=== PATIENT | female | born 1965 | race Caucasian/White ===

== ENCOUNTER 2020-04-01 11:41 | Emergency (ER) | payer BC, SELFPAY ==
[2020-04-01 11:51] VITALS: BP 145/84; PULSE 99; RESP 18; TEMP 36.3; O2SAT 100
--- NOTE | 2020-04-01 11:58 | ED.EAR ---
HPI - Ear Problem General Chief complaint: Ear Stated complaint: ear pain Source: patient and RN notes reviewed Mode of arrival: ambulatory History of Present Illness HPI Narrative: This is a 55-year-old white female presented to urgent care today with complaints of left ear pain. According to patient in the past she has had left ear pain in her ENT specialist has had to flush her ears due to cerumen impaction. Also notes a shooting headache to her left side of her head. The patient denies SOB, CP, palpitation, extremity numbness, lightheadedness, dizziness, constipation, diarrhea, chills, or fever,Visual disturbance, ear ringing or discharge. Related Data Home Medications Medication Instructions Recorded Confirmed alprazolam 0.5 mg PO DAILY PRN 04/01/20 04/01/20 Allergies Allergy/AdvReac Type Severity Reaction Status Date / Time No Known Allergies Allergy Unknown Unknown Verified 04/01/20 11:54 Review of Systems Review of Systems: All systems reviewed & are unremarkable except as noted in HPI and below PMFSH Past Medical History Medical History Anxiety Depression Family History Family History Other Family history of malignant neoplasm Social History Social History Smoking status: Never smoker Alcohol intake: current Drinks per week: 5 Substance use: never Gender identity (if verbalized by the patient): Female Exam Narrative: Exam Narrative: GENERAL: This is a well-nourished, well-developed patient, in no apparent distress. HEAD: normocephalic, atraumatic. EYES: PERRL. Sclera clear/white. Vision is grossly intact. EARS: External ears , left auditory canals edematous with excessive cerumen , TMs normal without perforation. Hearing grossly intact. NOSE: External nose normal with no obvious nasal discharge, nares without redness, no rhinorrhea. THROAT: Mucous membranes moist, posterior pharynx clear. NECK: Neck supple, non-tender without lymphadenopathy, masses or thyromegaly. CARDIOVASCULAR: Regular rate and rhythm without murmurs, gallops, or rubs. RESPIRATORY: Clear to auscultation. Breath sounds equal bilaterally. No wheezes, rales, or rhonchi. GASTROINTESTINAL: Abdomen soft, non-tender, nondistended. Bowel sounds are active. No hepato-splenomegaly, or palpable masses. No guarding. SKIN: warm, intact with no suspicious lesions or rash, good texture and turgor. NEURO: awake, alert, and oriented to person, place and time. There were no obvious focal neurologic abnormalities. Steady gait EXTREMITIES: Normal range of motion. No edema. No calf tenderness. Negative Homans sign bilaterally. BACK: Nontender without deformity or crepitance. No flank tenderness. HENMT: Ears: hearing grossly normal bilaterally and TM's normal bilaterally Course Course Emergency Course: Patient will discharge home with amoxicillin in Cortisporin for treatment of otitis media and otitis externa Vital Signs Vital signs: Vital Signs Temperature 97.4 F L 04/01/20 11:51 Pulse Rate 99 04/01/20 11:51 Respiratory Rate 18 04/01/20 11:51 Blood Pressure 145/84 H 04/01/20 11:51 Pulse Oximetry 100 04/01/20 11:51 Temperature 97.4 F L 04/01/20 11:51 Pulse Rate 99 04/01/20 11:51 Respiratory Rate 18 04/01/20 11:51 Blood Pressure 145/84 H 04/01/20 11:51 Pulse Oximetry 100 04/01/20 11:51 Procedures Other Procedure Procedure 1: Other Procedure: bilateral ear flushing with peroxide patient not able to tolerate flushing Medical Decision Making Vital Signs Vital Signs: Vital Signs Temperature 97.4 F L 04/01/20 11:51 Pulse Rate 99 04/01/20 11:51 Respiratory Rate 18 04/01/20 11:51 Blood Pressure 145/84 H 04/01/20 11:51 Pulse Oximetry 100 04/01/20 11:51 Temperature 97.4 F L 04/01/20 11:51 Pulse R
== END 2020-04-01 12:26 | disposition home or self-care (01) ==
PROVIDERS: Emergency Provider Nurse Practitioner; PCP Family Medicine
DX: H66.92 Otitis media, unspecified, left ear (principal); H60.502 Unspecified acute noninfective otitis externa, left ear; H61.21 Impacted cerumen, right ear; F41.9 Anxiety disorder, unspecified
CPT/HCPCS: 69209; 99213; A9270; G0463

== ENCOUNTER → 2020-06-05 08:10 | Outpatient (CLI) | payer BC, SELFPAY ==
[2020-06-05 19:48] LABS: SARS-CoV-2 RNA PCR Negative
== END ==
PROVIDERS: Nurse Practitioner Family; PCP Family Medicine; Visit Provider Family Medicine
DX: Z20.822 Contact with and (suspected) exposure to COVID-19 (principal); R05 Cough
CPT/HCPCS: C9803; U0003; U0005

== ENCOUNTER 2021-12-21 12:51 | Emergency (ER) | payer BC, SELFPAY ==
--- NOTE | ~2021-12-21 | CT_ITS ---
EXAMINATION: CT brain wo con DATE: 12/21/2021 13:46 INDICATION: Altered level of consciousness TECHNIQUE: Computed tomography (CT) of the head was performed without intravenous contrast. The dose- length product was 605.33 mGy-cm. Automated exposure control and iterative reconstruction technique w ere employed. COMPARISON: None FINDINGS: No acute intracranial hemorrhage, infarction, mass or mass effect. No ventriculomegaly or m idline shift. Basilar cisterns are patent. Normal das-white differentiation. Paranasal sinuses and m astoids are pneumatized. No depressed skull fractures. There are scattered mild periventricular and s ubcortical white matter changes, most likely related to small vessel ischemic disease (microangiopath y). Mild generalized brain parenchymal volume loss. IMPRESSION: 1. No acute intracranial abnormality. 2: Chronic age-related findings. Reviewed, dictated and finalized at location A.
--- NOTE | 2021-12-21 13:29 | ED.PSYCH ---
HPI - Psych General Chief Complaint: Psychiatric Symptoms <Jamaal Schmidt III, DO - Last Filed: 12/26/21 15:29> Stated Complaint: suicidal ideation <Jamaal Schmidt III, DO - Last Filed: 12/26/21 15:29> Time Seen by Provider: 12/21/21 12:56 <Jamaal Schmidt III, DO - Last Filed: 12/26/21 15:29> History of Present Illness HPI Narrative: Pt presents with paranoid behavior. Pt says she is having trouble living in her husbands house and has been talking to her but he's not listening. Pt apparently became upset today and made cut to wrist but denies being suicidal here. <Jamaal Schmidt III, DO - Last Filed: 12/26/21 15:29> Related Data Home Medications: Home Medications Medication Instructions Recorded Confirmed alprazolam 0.5 mg tablet 0.5 mg PO DAILY 04/12/20 12/06/21 <Jamaal Schmidt III, DO - Last Filed: 12/26/21 15:29> Allergies/Adverse Reactions: Allergies Allergy/AdvReac Type Severity Reaction Status Date / Time No Known Allergies Allergy Unknown Unknown Verified 12/21/21 14:08 <Jamaal Schmidt III, DO - Last Filed: 12/26/21 15:29> Review of Systems Review of Systems: All systems reviewed & are unremarkable except as noted in HPI and below <Jamaal Schmidt III, DO - Last Filed: 12/26/21 15:29> PMFSH Past Medical History Medical History: Medical History Anxiety Depression Screening mammogram, encounter for <Jamaal Schmidt III, DO - Last Filed: 12/26/21 15:29> Surgical History Surgical History: Surgical History Delivery by section x 3 H/O tubal ligation 1989 <Jamaal Schmidt III, DO - Last Filed: 12/26/21 15:29> Family History Family History: Family History Grandparent Hypertension paternal grandmother Other Family history of malignant neoplasm Malignant neoplasm eyeball <Jamaal Osmani Schmidt III, DO - Last Filed: 12/26/21 15:29> Social History Social History: Social History Smoking status: Never smoker Alcohol intake: current Drinks per week: 5 Substance use: never Substance use type: does not use Additional living arrangements comments: spouse Gender identity (if verbalized by the patient): Female Sexual Orientation (if Verbalized by the Patient): Straight or Heterosexual <Jamaal Osmani Schmidt III, DO - Last Filed: 12/26/21 15:29> Exam Const: General: healthy appearing <Jamaal Osmani Schmidt III, DO - Last Filed: 12/26/21 15:29> Nutritional Appearance: well nourished <Jamaal Osmani Schmidt III, DO - Last Filed: 12/26/21 15:29> Orientation/consciousness: patient oriented x3 <Jamaal Osmani Schmidt III, DO - Last Filed: 12/26/21 15:29> Limitations: behavioral limitations <Jamaal Osmani Schmidt III, DO - Last Filed: 12/26/21 15:29> HENMT: Head: normal to inspection <Jamaal Osmani Schmidt III, DO - Last Filed: 12/26/21 15:29> Mouth: Yes Normal oral and palatal mucosa present <Jamaal Osmani Schmidt III, DO - Last Filed: 12/26/21 15:29> Throat: posterior oropharynx normal <Jamala Osmani Schmidt III, DO - Last Filed: 12/26/21 15:29> Eyes: Conjunctivae: conjunctivae normal <Jamaal Osmani Schmidt III, DO - Last Filed: 12/26/21 15:29> Neck: Neck: normal visual inspection, no lymphadenopathy and no meningeal signs <Jamaal Osmani Schmidt III, DO - Last Filed: 12/26/21 15:29> Chest: Chest palpation & inspection: normal inspection of the chest <Jamaal Osmani Schmidt III, DO - Last Filed: 12/26/21 15:29> Resp: Effort & Inspection: normal respiratory effort <Jamaal Osmani Schmidt III, DO - Last Filed: 12/26/21 15:29> Auscultation: clear to auscultation bilaterally <Jamaal Osmani Schmidt III, DO - Last Filed: 12/26/21 15:29> Cardio: Rate: regular rate <Jamaal Schmidt III, DO - Last Filed: 12/26/21 15:29
[2021-12-21 13:33] VITALS: BP 147/97; PULSE 134; RESP 18; TEMP 36.7; O2SAT 96
[2021-12-21 13:38] LABS: Basophils Absolute Auto 0.1 K/mm3 (0.0-0.1); Basophils Percent Auto 1.4 % (0.2-1.2); Eosinophils Absolute Auto 0.1 K/mm3 (0-0.3); Eosinophils Percent Auto 1.6 % (0-4.4); Hemoglobin 14.4 g/dL (12.0-15.0); Immature Granulocyte Absolute 0.01 K/mm3 (0.00-0.031); Immature Granulocyte Percent A 0.2 % (0-0.5); Lymphocytes Absolute Auto 2.43 K/mm3 (0.9-3.2); Lymphocytes Percent Auto 43.7 % (18.3-44.2); Mean Corpuscular HGB Conc 34.3 g/dl (32-36); Mean Corpuscular Hemoglobin 33.6 pg (26-34); Mean Corpuscular Volume 98.1 fl (80-100); Mean Platelet Volume 9.8 fl (7.4-10.4); Monocytes Absolute Auto 0.4 K/mm3 (0.1-0.6); Monocytes Percent Auto 7.9 % (2.6-8.5); Neutrophils Absolute Auto 2.5 K/mm3 (1.3-6.7); Neutrophils Percent Auto 45.2 % (45.5-73.1); Platelet Count Result 193 k/mm3 (150-375); Red Blood Count 4.28 M/mm3 (4.2-5.4); Red Cell Distribution Width 13.2 % (11.5-14.5); White Blood Count 5.6 K/mm3 (4.5-10.0)
[2021-12-21 13:52] LABS: Acetaminophen < 10 ug/mL (10-30); Ethanol 266 mg/dL (<10); Salicylate < 1.0 mg/dL (2-20)
[2021-12-21 13:54] LABS: Alanine Aminotransferase 52 U/L (6-35); Albumin Level 5.1 g/dL (3.5-5.1); Alkaline Phosphatase 124 U/L (38-126); Anion Gap 23 mmol/L (8-16); Aspartate Amino Transferase 118 U/L (14-36); Blood Urea Nitrogen 8 mg/dL (7-17); Calcium 9.3 mg/dL (8.4-10.2); Carbon Dioxide 21 mmol/L (22-30); Chloride 99 mmol/L (98-107); Estimated CRCL calculation 69 ml/min; Estimated Glomerular Filt Rate > 60; Glucose 93 mg/dL (65-110); Potassium 4.1 mmol/L (3.4-5.0); Sodium 143 mmol/L (137-145)
[2021-12-21 15:21] VITALS: BP 143/78; PULSE 105; RESP 18; O2SAT 98
[2021-12-21 15:35] LABS: Appearance Urine Clear (Clear); Bilirubin Urine Negative (Negative); Blood Urine Negative (Negative); Color Urine Yellow (Yellow); Glucose Urine UA Negative (Negative); Ketones Urine 2+ mg/dL (Negative); Leukocyte Esterase Ur 1+ LEU/UL (Negative); Nitrate Urine Negative (Negative); Protein Urine Negative (Negative); Urobilinogen Urine 0.2 mg/dL (<2.0)
[2021-12-21 15:49] LABS: Add Urine Microscopic? YES; Amphetamine Screen Urine Negative (Negative); Barbiturate Screen Urine Negative (Negative); Benzodiazepines Screen Urine Positive (Negative); Cannabinoid Screen Urine Negative (Negative); Cocaine Screen Urine Negative (Negative); Methadone Screen Urine Negative (Negative); Mucus Urine Rare /lpf; Opiate Screen Urine Negative (Negative); Phencyclidine Screen Urine Negative (Negative); RBC Urine 0-2 /hpf (0-2); Squamous Epithelial Cell Urine Rare /hpf (Few); WBC Urine 16-20 /hpf
[2021-12-21] MEDS: THIAMINE HCL 200 MG/2 ML VIAL 100 MG IV PUSH (17:01)
[2021-12-21] MEDS: SODIUM CHLORIDE 0.9% IV 1,000 ML 999 ML IV CONT (17:01)
--- NOTE | 2021-12-21 21:03 | PC.NURSE ---
Pt asleep in room, at bedside. pt ciwa completed and updated on pt status for behavioral evaluation. Pt and RN discussed safety plan.
[2021-12-21 21:53] LABS: Ethanol 103 mg/dL (<10)
[2021-12-22 00:09] LABS: Ethanol 56 mg/dL (<10)
--- NOTE | 2021-12-22 00:31 | PC.NURSE ---
[facility] contacted by this RN and will send someone within the hour.
--- NOTE | 2021-12-22 04:46 | PC.NURSE ---
[facility] called requesting fax of chart. Awaiting ERP medically clear note to fax. ERP and hot car charger aware,.
[2021-12-22 07:06] VITALS: BP 141/82; PULSE 102; RESP 18; TEMP 36.4; O2SAT 97
--- NOTE | 2021-12-22 07:15 | PC.NURSE ---
Assumed care of pt. at this time. Report from [facility]
[2021-12-22 07:23] LABS: SARS-CoV-2 RNA PCR Negative
--- NOTE | 2021-12-22 08:07 | PC.NURSE ---
lauren w/ jacquelin states she is going to present patient info to physician states her name is Hussein and direct number is [phone]
[2021-12-22 08:14] VITALS: BP 137/70; PULSE 102; TEMP 36.5; O2SAT 99
--- NOTE | 2021-12-22 09:17 | PC.NURSE ---
RN and practice nurse at pt. bedside. pt. and family member inform nursing staff that Shirley from [facility] told them that she was going to put an involuntary hold on pt. and that someone would be back in the morning to reevaluate pt. RN and credit charge authorizer educated pt. and family that an involuntary hold takes away pt. rights for 24 hours and that crisis cannot come back to reevaluate pt. until that 24 hour hold is up. pt. and family then state We never would have disagreed for psychiatric treatment had they been aware of this. We were misinformed and now placed in this situation. It seems unfair. Pt. and family state they feel mislead. RN recalled crisis states they will still not reevaluate pt. due to psych hold. charge aware. pt. and family made aware that pt. will need to be placed or reevaluated at midnight.
--- NOTE | 2021-12-22 09:42 | PC.NURSE ---
pt. on phone w/ psychiatrist.
--- NOTE | 2021-12-22 09:58 | PC.NURSE ---
[facility]. states she should be accepted with in a few hours.
[2021-12-22] MEDS: LORazepam (*CRX) 0.5 MG TABLET PO (10:11)
--- NOTE | 2021-12-22 13:00 | PC.NURSE ---
pt. has a bed at [place], [place]. pt. going to bed 110-1
[2021-12-22 14:24] VITALS: BP 154/97; PULSE 108; RESP 20; TEMP 36.4; O2SAT 100
== END 2021-12-22 17:30 ==
PROVIDERS: Emergency Medicine; Emergency Provider General Practice
DX: F32.A Depression, unspecified (principal); F10.129 Alcohol abuse with intoxication, unspecified; Y90.8 Blood alcohol level of 240 mg/100 ml or more; Z20.822 Contact with and (suspected) exposure to COVID-19; F41.9 Anxiety disorder, unspecified
CPT/HCPCS: 36415; 70450; 80053; 80307; 81001; 84443; 85025; 87086; 87147; 87181; 87186; 96361; 96374; 99285; A9270; C9803; J3411; J7030; U0003; U0005

== ENCOUNTER 2022-03-31 01:10 | Day surgery (SDC) | payer BC, SELFPAY ==
--- NOTE | 2022-03-17 16:25 | PC.NURSE ---
Report to the Outpatient Waiting Room, entrance under the green pavilion located off [facility], at time 1000 on date 03/31/22. Planned Procedure Time: _1200. Time changes happen often and if your time is changed the preop area will call you the afternoon before. - You and your visitor will be asked to self-screen and do not enter if you have any COVID symptoms. - Only one visitor is requested with a max of two and NO children visitors are allowed at this time. - The patient visitor may be requested to leave or wait in car when not with patient due to distancing restrictions. - A mask is optional within the hospital. Patients may have clear liquids (water, carbonated beverages, clear teas, apple juice) until 3 hours prior to surgery with a maximum of 20 ounces. - No food from midnight until time of surgery - Infants may have breast milk until 4 hours before surgery, infant formula 6 hours prior to surgery. - Children will be allowed to drink immediately following surgery. If applicable, please bring a bottle or sippy cup to assist with drinking. Juice, water, soda, and popsicles are readily available. For infants on formula, please bring formula the day of surgery. Pacifiers are allowed. Take the following medications with a SIP of water the morning of surgery: _Alprazolam__ Medications to discontinue per physician _vitamins/supplements Date to take last dose_03/28/22_ Please no make-up, nail amharic, hairspray, perfume, deodorant, or body powder the day of surgery. No jewelry (including any body piercings) or valuables the day of surgery, leave them at home. Please take a shower or bath the night before, or the morning of, surgery with an antibacterial soap. Wear comfortable, loose fitting clothing. Children are encouraged to wear pajamas. - Jewelry must be removed prior to entering the operating room. Rings and piercings that are not removed may be cut off. - The hospital will not accept responsibility for valuables. - Please leave all valuables, including medications, at home the day of surgery. If you are going home after surgery, a licensed hazmat cdl driver must drive you home. - NO public transportation without another adult if you receive anesthesia. - We recommend that an adult stay with you for 24 hours following discharge. - We also recommend that you do not drive, make important decision, drink alcoholic beverages, or take any drugs that were not prescribed by your health care provider for at least 24 hours after your discharge time. For Pediatric surgeries, we recommend two adults accompany the child home. Follow any additional instructions given to you from your surgeon. If you or anyone in your household have experienced Covid symptoms in the past week, please notify your surgeon or the nurse liaison at the phone number below for possible testing. Telephone instructions given to Vicky Lopez and asked if any additional questions and then verbalized understanding. Patient advised to call surgeon office or pre surgery nurse liaison [phone] if any additional questions.
--- NOTE | 2022-03-30 17:36 | PM.IMHP ---
H&P: HPI History of Present Illness Date/Time: 03/30/22 17:36 Chief Complaint: septal deviation turbinate hypertrophy nasal obstruction nasal congestion Narrative: planned surgical procedure Review of Systems Review of Systems: All systems reviewed & are unremarkable except as noted in HPI and below PMFSH Past Medical History Medical History Anxiety Depression Screening mammogram, encounter for Surgical History Surgical History Delivery by section x 3 H/O tubal ligation 1989 Family History Family History Grandparent Hypertension paternal grandmother Other Alcoholism Family history of malignant neoplasm Malignant neoplasm eyeball Primary malignant neoplasm of ocular adnexa Social History Social History (Updated 03/20/22 @ 09:10 by Antoinette Preciado CMA) Smoking status: Never smoker Alcohol intake: never Drinks per week: 5 Substance use: never Substance use type: does not use Lack of Transportation: No Lack of Food: Never True Current Housing: I Have Housing Concerned About Future Housing: No Difficulty Paying Gas/Electric Bills: No Currently Unemployed: No Education: High School Diploma/GED Difficulty w/ Childcare or Family Care: No Additional living arrangements comments: spouse Gender identity (if verbalized by the patient): Female Sexual Orientation (if Verbalized by the Patient): Straight or Heterosexual Spiritual care concerns: No Meds Home Medications and Allergies Home Medications Medication Instructions Recorded Confirmed Type alprazolam 0.5 mg tablet 0.5 mg PO DAILY PRN Anxiety 04/12/20 03/17/22 History ascorbate calcium (vitamin C) 500 500 mg PO DAILY 01/24/22 03/17/22 History mg tablet biotin 1,000 mcg chewable tablet 1,000 mcg PO DAILY 01/24/22 03/17/22 History cholecalciferol (vitamin D3) 50 50 mcg PO DAILY 01/24/22 03/17/22 History mcg (2,000 unit) capsule vitamin A 2,400 mcg capsule 2,400 mcg PO DAILY 01/24/22 03/17/22 History acidophilus 100 million 1 cap PO DAILY 03/17/22 03/17/22 History cell-pectin, citrus 10 mg capsule fluoxetine 20 mg capsule (Prozac) 20 mg PO DAILY 03/17/22 03/17/22 History nitrofurantoin 100 mg capsule 100 mg PO Q12H PRN uti 03/17/22 03/17/22 History vitamins A,C,G-upgb-pnxoxo 2,148 2 tablet PO BID 03/17/22 03/17/22 History mcg-113 mg-45 mg-17.4 mg tablet Allergies Allergy/AdvReac Type Severity Reaction Status Date / Time No Known Allergies Allergy Unknown Unknown Verified 03/20/22 09:09 Exam Narrative: septal deviation turbinate hypertrophy Assessment and Plan Assessment and plan (1) Nasal obstruction: Code(s): J34.89 - Other specified disorders of nose and nasal sinuses Status: Acute Assessment and Plan: endoscopic assisted septoplasty turbinate reduction with outfracture 2 hours. Risks discussed including bleeding infection damage to surrounding structures need for further procedures septal perforation CSF leak brain brain damage blindness change in vision failure to resolve symptoms cosmetic deformity. (2) Nasal congestion: Code(s): R09.81 - Nasal congestion Status: Acute (3) Hypertrophy of both inferior nasal turbinates: Code(s): J34.3 - Hypertrophy of nasal turbinates Status: Acute (4) Nasal septal deviation: Code(s): J34.2 - Deviated nasal septum Status: Acute
[2022-03-31] VITALS (11 sets, daily range): BP systolic 100–156; BP diastolic 72–99; PULSE 75–92; RESP 12–19; TEMP 36.3–36.7; O2SAT 95–100; BMI 24.7
--- NOTE | 2022-03-31 07:15 | WPDHPUPDATE1 ---
History and Physical Update Update Date/Time: 03/31/22 07:15 History and Physical has been reviewed, including an updated exam of the patient. There are NO changes in the patient's condition. Risks, benefits, and alternatives have been discussed and questions answered. Patient agrees to proceed with procedure.
[2022-03-31] MEDS: LACTATED RINGERS 1,000 ML 30 ML IV CONT ×2 (08:54→12:05)
[2022-03-31] MEDS: ACETAMINOPHEN 500 MG TABLET 1000 MG PO (08:54)
--- NOTE | 2022-03-31 09:37 | WPDANESEPPF ---
Anes - Initial Pre Proc Eval Procedure: Operation Date: 03/31/22 10:30 Proposed Procedures p Endoscopic Septoplasty - Venancio Boyd MD s Bilateral Inferior Turbinectomy with Outfracture - Venancio Boyd MD Date/Time: 03/31/22 09:37 Surgeon: Venancio Boyd MD Pre Op Diagnosis: Septal Dev, Turbinate Hypertropy Patient Data Age: 57 Gender: F Height: 1.57 m Weight: 61.3 kg Last Vital Signs Temp 36.7 C 03/31/22 08:37 Pulse 82 03/31/22 08:37 Resp 16 03/31/22 08:37 BP 147/89 H 03/31/22 08:37 Pulse Ox 100 03/31/22 08:37 O2 Del Method Room Air 03/31/22 08:37 Allergies Allergy/AdvReac Type Severity Reaction Status Date / Time No Known Allergies Allergy Unknown Unknown Verified 03/31/22 08:35 Home Medications Medication Instructions Recorded Confirmed Type alprazolam 0.5 mg tablet 0.5 mg PO DAILY PRN Anxiety 04/12/20 03/31/22 History ascorbate calcium (vitamin C) 500 500 mg PO DAILY 01/24/22 03/31/22 History mg tablet biotin 1,000 mcg chewable tablet 1,000 mcg PO DAILY 01/24/22 03/31/22 History cholecalciferol (vitamin D3) 50 50 mcg PO DAILY 01/24/22 03/31/22 History mcg (2,000 unit) capsule vitamin A 2,400 mcg capsule 2,400 mcg PO DAILY 01/24/22 03/31/22 History acidophilus 100 million 1 cap PO DAILY 03/17/22 03/31/22 History cell-pectin, citrus 10 mg capsule fluoxetine 20 mg capsule (Prozac) 20 mg PO DAILY 03/17/22 03/31/22 History nitrofurantoin 100 mg capsule 100 mg PO Q12H PRN uti 03/17/22 03/31/22 History vitamins A,C,E-ybes-pwrsjs 2,148 2 tablet PO BID 03/17/22 03/31/22 History mcg-113 mg-45 mg-17.4 mg tablet Patient hx anesthesia problems: none and other (motion sickness) Family hx anesthesia problems: none Results Review: All pre-operative results and documents have been reviewed as part of the pre-operative evaluation. PMFSH Past Medical History Medical History Anxiety Depression Screening mammogram, encounter for Surgical History Surgical History Delivery by section x 3 H/O tubal ligation 1989 Family History Family History Grandparent Hypertension paternal grandmother Other Alcoholism Family history of malignant neoplasm Malignant neoplasm eyeball Primary malignant neoplasm of ocular adnexa Social History Social History Smoking status: Never smoker Alcohol intake: never Drinks per week: 5 Substance use: never Substance use type: does not use Lack of Transportation: No Lack of Food: Never True Current Housing: I Have Housing Concerned About Future Housing: No Difficulty Paying Gas/Electric Bills: No Currently Unemployed: No Education: High School Diploma/GED Difficulty w/ Childcare or Family Care: No Living arrangements: with family Additional living arrangements comments: spouse Gender identity (if verbalized by the patient): Female Sexual Orientation (if Verbalized by the Patient): Straight or Heterosexual Spiritual care concerns: No Anes - Eval Final PreProcedure Day of Procedure 03/31/22 09:37 Patient weight: normal Heart: regular rate and rhythm Lungs: clear to auscultation Airway: Mallampati scale class II Neurological: alert and oriented Last oral intake: >/= 8 hours ASA classification: II Emergent: no Anesthetic plan: proceed Anesthesia type and monitoring: general ETT and standard monitoring Results Review: All pre-operative results and documents have been reviewed as part of the pre-operative evaluation. Informed Consent: The patient's anesthetic plan and its attendant risks and benefits were discussed with the patient/family/POA. Questions were solicited and answers provided to the satisfaction of the patient/family/POA.
[2022-03-31] MEDS: SCOPOLAMINE 1.5 MG PATCH TRANSDERM (09:39)
[2022-03-31] MEDS: OXYMETAZOLINE HCL 0.05% NAS 15 ML BTL (*BKC) 1 SPRAY NASAL (10:52)
[2022-03-31] MEDS: ceFAZolin 2 GM/D5W 50 ML 2 GM/50 ML BAG IVPB (10:52)
[2022-03-31] MEDS: fentaNYL CITRATE INJ (*CRX) 100 MCG/2 ML VIAL 25 MCG IV PUSH ×4 (12:24→13:01)
--- NOTE | 2022-03-31 12:33 | P.OP_ITS ---
Procedure Note - Detailed Date of Procedure 03/31/22 Pre-op Diagnosis Septal Dev, Turbinate HypertropyNasal obstruction nasal congestion Post-op Diagnosis Same Procedure Performed endoscopic assisted septoplasty inferior turbinate submucosal reduction with outfracture Surgeon Venancio Boyd MD Anesthesia General Indications see above Findings severely deviated caudal septum well-positioned small perforation left side no concomitant right-sided perforation/tissue. Very patent airways postop Description of Procedure patient identified consent verified. Patient brought operating room. Time-out performed. General anesthesia induced endotracheal tube secured. Patient prepped draped position 2nd time-out performed. Afrin-soaked pledgets placed allowed to sit for 5 minutes then removed. 0 degree endoscope utilized. 10 cc 1% lidocaine 1 1000 parts epinephrine injected deep to bilateral nasal septum and anterior heads of inferior turbinates. Fifteen blade utilized to make a left-sided [place] incision left nasal septal flap elevated with 7 [place] suction. Osteotome utilized to cross over anteriorly. Right nasal septal flap elevated. Deviated septum removed combination Jayden forceps Declan Florentino forceps osteotome. Joint incision sutured anteriorly using 3 interrupted 5 0 fast gut sutures. Turbinates after being injected entered anteriorly using inferior turbinate blade on microdebrider debrided in the submucosal plane then outfractured with [place]. Past suctioned Dueñas splints placed sutured to use mattress 3-0 suture. Total blood loss 15 cc no complications care the patient given Anesthesiology I performed all dictated portions of procedure. Estimated Blood Loss -15.0 Drains No Packing No Pathology None sent Complications No immediate complications Condition Stable
--- NOTE | 2022-03-31 14:11 | SUR.PHASEII ---
1410 - drip pad changed. currently dry and intact.
== END 2022-03-31 15:06 | disposition home or self-care (01) ==
PROVIDERS: PCP Family Medicine; Visit Provider Otolaryngology
PROC: (CPT 30520; principal; 2022-03-31 10:30)
PROC: (CPT 30520; 2022-03-31 10:30)
DX: J34.2 Deviated nasal septum (principal); J34.3 Hypertrophy of nasal turbinates; R09.81 Nasal congestion; J34.89 Other specified disorders of nose and nasal sinuses; F41.9 Anxiety disorder, unspecified; F32.A Depression, unspecified
CPT/HCPCS: 30520; 30140; A9270; J0330; J0690; J1100; J2405; J2704; J3010; J7120

== ENCOUNTER 2023-08-30 07:53 | Outpatient (CLI) | payer BC, SELFPAY ==
--- NOTE | ~2023-08-30 | US_ITS ---
US abdomen limited INDICATION: PROCEDURE: Realtime right upper abdominal ultrasound. COMPARISON: No prior studies for comparison. FINDINGS: The pancreas is largely obscured by bowel gas. Liver echotexture is increased, consistent with fatty infiltration. There is normal directional flow in the portal vein. The gallbladder is normal without stones, gallbladder wall thickening or pericholecystic fluid. Comm on bile duct measures 4 mm. No sonographic Jin's sign. IMPRESSION: 1: Fatty infiltration of the liver. Reviewed, dictated and finalized at location B.
== END 2023-08-30 07:54 ==
PROVIDERS: PCP Family Medicine; Visit Provider Physician Assistant Medical
DX: R79.89 Other specified abnormal findings of blood chemistry (principal); Z78.9 Other specified health status; K76.9 Liver disease, unspecified
CPT/HCPCS: 76705